=== PATIENT | male | born 1940 | race Caucasian/White ===

== ENCOUNTER 2017-08-16 16:46 | Emergency (ER) | payer MEDICARE ==
[~2017-08-16] VITALS: Ht 174 cm; Wt 98.1 kg
[~2017-08-16 16:46] MED LIST: ALLO100 PO; LOSA25TA31 PO; OYST500T77 PO; TAB-TAB PO
[2017-08-16 16:53] VITALS: BP 130/59; PULSE 85; RESP 16; TEMP 100.6; O2SAT 94
[2017-08-16] MEDS ORDERED: ALLO100T PO (17:09)
[2017-08-16] MEDS ORDERED: METO25TA3 PO (17:09)
[2017-08-16] MEDS ORDERED: LIPI10TA PO (17:09)
[2017-08-16] MEDS ORDERED: PLAV75TA29 PO (17:09)
[2017-08-16] MEDS ORDERED: SODIUM CHLOR 0.9% 1000 ML INJ 1,000 ML IV ONE (17:30)
[2017-08-16] MEDS ORDERED: VANCOMYCIN INJ 1,000 MG in SODIUM CHLOR 0.9% 250 ML INJ 250 ML IV ONE (17:30)
[2017-08-16] MEDS ORDERED: TETANUS/DIPHTHERIA TOXOID ADULT 0.5 ML VIAL IM ONE (17:30)
--- NOTE | 2017-08-16 17:31 | PD ---
HPI Chief Complaint: Fever Time Seen by Provider: 17:13 Travel History International Travel<30 days: No Contact w/Intl Traveler<30days: No Traveled to known affect area: No History of Present Illness HPI 77-year-old male complains of fever chills body ache. Patient states that he was doing gardening yesterday and got puncture wound to the fingers from cactus. Patient states that he started having fever chills up to 102 since yesterday. Patient states that he has shaking chills intermittent yesterday and today. Patient denies any headache. Patient denies any neck pain. Patient denies any coughing congestion. Patient denies any chest pain or shortness of breath. Patient denies abdominal pain. Patient denies any nausea vomiting diarrhea. Patient denies any dysuria frequency. Patient denies any back pain. Patient is not up-to-date with TD booster. PFSH Past Medical History Hx Anticoagulant Therapy: Yes (plavix) Heart Rhythm Problems: No Cardiovascular Problems: Yes (htn on meds, [place] 2002) High Cholesterol: Yes Chest Pain: Yes Diminished Hearing: No Hypertension: Yes Myocardial Infarction: Yes Sleep Apnea: Yes (BEFORE GASTRIC BYPASS) Tetanus Vaccination: < 5 Years Influenza Vaccination: Yes Past Surgical History Abdominal Surgery: Yes (GASTRIC BYPASS AUGUST 2007, GALLBLADDER REMOVED, hernia ) Cholecystectomy: Yes Social History Alcohol Use: No Tobacco Use: No Substance Use: No Allergies-Medications (Allergen,Severity, Reaction): Coded Allergies: No Known Allergies (Verified Allergy, Mild, 08/16/17) Reported Meds & Prescriptions Reported Meds & Active Scripts Active Clindamycin (Clindamycin HCl) 150 Mg Cap 300 Mg PO QID Doxycycline Hyclate 100 Mg Cap 100 Mg PO BID Reported Metoprolol Tartrate 25 Mg Tab 25 Mg PO DAILY Allopurinol 100 Mg Tab 100 Mg PO DAILY Lipitor (Atorvastatin Calcium) 10 Mg Tab 10 Mg PO HS Plavix (Clopidogrel Bisulfate) 75 Mg Tab 75 Mg PO DAILY Review of Systems General / Constitutional: Positive: Fever, Chills Eyes: No: Visual changes HENT: No: Headaches Cardiovascular: No: Chest Pain or Discomfort Respiratory: No: Shortness of Breath Gastrointestinal: No: Abdominal Pain Genitourinary: No: Dysuria Musculoskeletal: No: Pain Skin: No Rash Neurologic: No: Weakness Psychiatric: No: Depression Endocrine: No: Polydipsia Hematologic/Lymphatic: No: Easy Bruising Physical Exam Narrative GENERAL: Well-nourished, well-developed patient. SKIN: Focused skin assessment warm/dry. HEAD: Normocephalic. EYES: No scleral icterus. No injection or drainage. NECK: Supple, trachea midline. No JVD or lymphadenopathy. CARDIOVASCULAR: Regular rate and rhythm without murmurs, gallops, or rubs. RESPIRATORY: Breath sounds equal bilaterally. No accessory muscle use. GASTROINTESTINAL: Abdomen soft, non-tender, nondistended. MUSCULOSKELETAL: Patient has redness swelling with mild tenderness distal phalange right third finger with redness streaking extended from the dorsal aspect of the right hand to the right wrist. BACK: Nontender without obvious deformity. No CVA tenderness. Neurologic exam normal. Data Data Last Documented VS Vital Signs Date Time Temp Pulse Resp B/P (MAP) Pulse Ox O2 Delivery O2 Flow Rate FiO2 08/16/17 18:05 96 Room Air 08/16/17 18:05 103.2 08/16/17 16:53 85 16 130/59 (82) Orders Orders Complete Blood Count With Diff (08/16/17 17:23) Comprehensive Metabolic Panel (08/16/17 17:23) Blood Culture (08/16/17 17:23) Urinalysis - C+S If Indicated (08/16/17:23) Influenzae A/B Antigen (08/16/17 17:23) Chest, Single Ap (08/16/17 17:23) Iv Access Insert/Monitor (08/16/17 17:23) Ecg Monitoring (08/16/17:23) Oximetry (08/16/17:23) Lactic Acid (08/16/17 17:23) Sodium Chlor 0.9% 1000 Ml Inj (Ns 1000 M (08/16/17 17:30) Tetanus/Diphtheria Tox Adult (Tetanus/Di (08/16/17 17:30) Vancomycin Inj (Vancomycin Inj) (08/16/17 17:30) Prothrombin Time / Inr (Pt) (08/16/17 17:26) Act Partial Throm Time (Ptt) (08/16/17 17:26) Acetaminophen (Tylenol) (08/16/17 18:15) Doxycycline (Vibramycin) (08/16/17 18:45) Ed Discharge Order (08/16/17 18:33) Labs Laboratory Tests Test 08/16/17 17:30 White Blood Count 8.7 TH/MM3 Red Blood Count 4.02 MIL/MM3 Hemoglobin 12.9 GM/DL Hematocrit 38.5 % Mean Corpuscular Volume 95.9 FL Mean Corpuscular Hemoglobin 32.1 PG Mean Corpuscular Hemoglobin Concent 33.5 % Red Cell Distribution Width 12.5 % Platelet Count 153 TH/MM3 Mean Platelet Volume 10.3 FL Neutrophils (%) (Auto) 89.6 % Lymphocytes (%) (Auto) 5.2 % Monocytes (%) (Auto) 2.2 % Eosinophils (%) (Auto) 0.1 % Basophils (%) (Auto) 2.9 % Neutrophils # (Auto) 7.7 TH/MM3 Lymphocytes # (Auto) 0.5 TH/MM3 Monocytes # (Auto) 0.2 TH/MM3 Eosinophils # (Auto) 0.0 TH/MM3 Basophils # (Auto) 0.3 TH/MM3 CBC Comment AUTO DIFF Differential Comment AUTO DIFF CONFIRMED Prothrombin Time 12.7 SEC Prothromb Time International Ratio 1.3 RATIO Activated Partial Thromboplast Time 27.3 SEC Blood Urea Nitrogen 25 MG/DL Creatinine 1.30 MG/DL Random Glucose 112 MG/DL Total Protein 7.5 GM/DL Albumin 3.6 GM/DL Calcium Level 8.8 MG/DL Alkaline Phosphatase 61 U/L Aspartate Amino Transf (AST/SGOT) 24 U/L Alanine Aminotransferase (ALT/SGPT) 29 U/L Total Bilirubin 1.4 MG/DL Sodium Level 135 MEQ/L Potassium Level 4.2 MEQ/L Chloride Level 100 MEQ/L Carbon Dioxide Level 28.4 MEQ/L Anion Gap 7 MEQ/L Estimat Glomerular Filtration Rate 54 ML/MIN Lactic Acid Level 1.2 mmol/L MDM Medical Decision Making Medical Screen Exam Complete: Yes Emergency Medical Condition: Yes Interpretation(s) 1823 PM. Last Impressions Chest X-Ray 08/16/17 1723 Signed Impressions: Service Date/Time: Wednesday, August 16, 2017 17:31 - CONCLUSION: Underated with minimal parenchymal changes left base. No failure Cayetano Oliveira MD FACR 1823 PM. CBC WBC 8.7. Hemoglobin 12.9 hematocrit 30.5. 89 neutrophil. Sodium 135. BUN 25. GFR 54. Creatinine 1.3. Lactic acid 1.2. INR 1.3. Influenza AB antigen negative. Differential Diagnosis Differential diagnosis including cellulitis, lymphangitis, sepsis. Unlikely sporotrichosis Narrative Course 77-year-old male with fever chills and redness of right third finger with extension the redness to the right hand and the right wrist. Status post cactus puncture wound while gardening yesterday. Td booster given. Normal saline solution 1 L IV bolus. Vancomycin 1 g IV given. Tylenol 650 mg p.o. given. Doxycycline 100 mg p.o. given. Examination unlikely sporotrichosis. Diagnosis Primary Impression: Cellulitis Qualified Codes: L03.011 - Cellulitis of right finger Additional Impression: Lymphangitis Patient Instructions: General Instructions Additional Instructions: Clindamycin and doxycycline as directed. Return in a.m. for recheck. Tylenol for fever. Med/Other Pt SpecificInfo: Prescription(s) given Scripts Clindamycin (Clindamycin) 150 Mg Cap 300 MG PO QID for Infection, #80 CAP 0 Refills Prov: Myles Austin MD 08/16/17 Doxycycline Hyclate (Doxycycline Hyclate) 100 Mg Cap 100 MG PO BID for Infection, #20 CAP 0 Refills Prov: Myles Austin MD 08/16/17 Disposition: 01 DISCHARGE HOME Condition: Stable Myles Austin MD August 16, 2017 17:31
[2017-08-16 17:49] LABS: AUTOMATED NEUTROPHIL # 7.7 TH/MM3 (1.8-7.7); BASOPHIL # 0.3 TH/MM3 (0-0.2); BASOPHIL % 2.9 % (0.0-2.0); EOSINOPHIL % 0.1 % (0.0-4.0); HEMATOCRIT 38.5 % (39.0-51.0); HEMOGLOBIN 12.9 GM/DL (13.0-17.0); LYMPH % 5.2 % (9.0-44.0); LYMPHOCYTE # 0.5 TH/MM3 (1.0-4.8); MEAN CELL VOLUME 95.9 FL (80.0-100.0); MEAN CORPUSCULAR HEMOGLOBIN 32.1 PG (27.0-34.0); MEAN CORPUSCULAR HGB CONC 33.5 % (32.0-36.0); MEAN PLATELET VOLUME 10.3 FL (7.0-11.0); MONO % 2.2 % (0.0-8.0); MONOCYTE # 0.2 TH/MM3 (0-0.9); NEUT % 89.6 % (16.0-70.0); PLATELET COUNT 153 TH/MM3 (150-450); RED BLOOD COUNT 4.02 MIL/MM3 (4.50-5.90); RED CELL DISTRIBUTION WIDTH 12.5 % (11.6-17.2); WHITE BLOOD COUNT 8.7 TH/MM3 (4.0-11.0)
--- NOTE | 2017-08-16 17:51 | RADRPT ---
EXAM DATE/TIME: 08/16/2017 17:31 [facility] COMPARISON: No previous studies available for comparison. INDICATIONS : Fever begining yesterday after puncture wound to finger from cactus. MEDICAL HISTORY : Hypertension. Myocardial infarction. SURGICAL HISTORY : None. ENCOUNTER: Initial ACUITY: 2 days PAIN SCORE: 0/10 LOCATION: Bilateral chest FINDINGS: The lungs are under aerated. Minimal parenchymal changes left base. Right lung clear. Mild promine nce to the cardiac silhouette. No failure CONCLUSION: Underated with minimal parenchymal changes left base. No failure Cayetano Oliveira MD FACR on August 16, 2017 at 17:47 Board Certified Radiologist. This report was verified electronically.
[2017-08-16 18:04] LABS: CHLORIDE 100 MEQ/L (98-107); SODIUM (NA) 135 MEQ/L (136-145)
[2017-08-16 18:05] VITALS: TEMP 103.2; O2SAT 96
[2017-08-16 18:07] LABS: ALBUMIN 3.6 GM/DL (3.4-5.0); BICARBONATE 28.4 MEQ/L (21.0-32.0); BLOOD UREA NITROGEN 25 MG/DL (7-18); CALCIUM 8.8 MG/DL (8.5-10.1); GLUCOSE,RANDOM 112 MG/DL (74-106)
[2017-08-16 18:09] LABS: INTERNATIONAL NORMALIZED RATIO 1.3 RATIO; PROTHROMBIN TIME - PATIENT 12.7 SEC (9.8-11.6)
[2017-08-16 18:10] LABS: ALT (GPT) 29 U/L (12-78); AST (GOT) 24 U/L (15-37); GLOMERULAR FILTRATION RATE 54 ML/MIN (>89)
[2017-08-16 18:12] LABS: TOTAL BILIRUBIN ADULT 1.4 MG/DL (0.2-1.0); TOTAL PROTEIN 7.5 GM/DL (6.4-8.2)
[2017-08-16 18:13] LABS: ALKALINE PHOSPHATASE 61 U/L (45-117)
[2017-08-16] MEDS ORDERED: ACETAMINOPHEN 325 MG TAB PO ONE (18:15)
[2017-08-16] MEDS ORDERED: CLIN150C14 PO (18:32)
[2017-08-16] MEDS ORDERED: DOXY100C PO (18:32)
[2017-08-16] MEDS ORDERED: DOXYCYCLINE HYCLATE 100 MG CAP PO ONE (18:45)
[2017-08-16 18:55] LABS: BILIRUBIN, URINE NEG (NEG); BLOOD, URINE TRACE (NEG); GLUCOSE,URINE NEG (NEG); KETONE, URINE NEG (NEG); NITRITE,URINE NEG (NEG); PH, URINE 5.5 (5.0-8.5); URINE COLOR YELLOW (YELLW/STRAW); URINE LEUKOCYTE ESTERASE NEG (NEG)
[2017-08-16 19:02] LABS: SQUAMOUS EPITHELIAL CELL URINE 0-5 /hpf (0-5)
[2017-08-16 19:19] VITALS: RESP 18
[2017-08-16 19:20] VITALS: BP 103/50; TEMP 101.4
[2017-08-17] MEDS ORDERED: SPIR25TA PO (07:08)
[2017-08-17] MEDS ORDERED: METO1TAB42 PO (07:08)
[2017-08-17] MEDS ORDERED: LOSA25TA PO (07:08)
== END 2017-08-16 19:27 | disposition home or self-care (01) ==
LOC: PHED 16:46
DX: L03.011 Cellulitis of right finger (principal); A49.8 Other bacterial infections of unspecified site; I89.1 Lymphangitis; I10 Essential (primary) hypertension; E78.00 Pure hypercholesterolemia, unspecified; I25.2 Old myocardial infarction; G47.30 Sleep apnea, unspecified; Z79.02 Long term (current) use of antithrombotics/antiplatelets; Z23 Encounter for immunization
CPT/HCPCS: 71045; 80053; 81001; 83605; 85025; 85610; 85730; 87040; 87077; 87186; 87205; 87804; 90471; 90714; 96365; 99284; J3370; J7030; J7050

== ENCOUNTER 2017-08-17 06:49 | Emergency (ER) | payer MEDICARE ==
[~2017-08-17] VITALS: Ht 175.3 cm; Wt 99.1 kg
[~2017-08-17 06:49] MED LIST changes: -ALLO100 PO; +ALLO100T PO; +CLIN150C14 PO; +DOXY100C PO; +LIPI10TA PO; -LOSA25TA31 PO; +METO25TA3 PO; -OYST500T77 PO; +PLAV75TA29 PO; -TAB-TAB PO
[2017-08-17 06:53] VITALS: BP 106/55; PULSE 66; RESP 18; TEMP 99.5; O2SAT 96
[2017-08-17] MEDS ORDERED: LOSA25TA PO (07:08)
[2017-08-17] MEDS ORDERED: SPIR25TA PO (07:08)
[2017-08-17] MEDS ORDERED: METO1TAB42 PO (07:08)
--- NOTE | 2017-08-17 07:12 | PD ---
HPI . Recheck Chief Complaint: Skin Problem Time Seen by Provider: 07:01 Travel History International Travel<30 days: No Contact w/Intl Traveler<30days: No Traveled to known affect area: No History of Present Illness HPI This patient presents for a scheduled recheck. He was seen yesterday for fever and cellulitis of his right middle finger which extended up into the hand and distal forearm. He was treated here yesterday with IV vancomycin and was discharged with prescriptions for doxycycline and clindamycin. He will start the doxycycline and clindamycin this morning. He states that his fever has come down. His hand seems to be a little bit better. PFSH Past Medical History Hx Anticoagulant Therapy: Yes (plavix) Heart Rhythm Problems: No Cardiovascular Problems: Yes ([place]) High Cholesterol: Yes Chest Pain: Yes Diminished Hearing: No Hypertension: Yes Myocardial Infarction: Yes Sleep Apnea: Yes (BEFORE GASTRIC BYPASS) Past Surgical History Abdominal Surgery: Yes (GASTRIC BYPASS AUGUST 2007, GALLBLADDER REMOVED, hernia ) Cholecystectomy: Yes Social History Alcohol Use: No Tobacco Use: No Substance Use: No Allergies-Medications (Allergen,Severity, Reaction): Coded Allergies: No Known Allergies (Verified Allergy, Mild, 08/17/17) Reported Meds & Prescriptions Reported Meds & Active Scripts Active Clindamycin (Clindamycin HCl) 150 Mg Cap 300 Mg PO QID Doxycycline Hyclate 100 Mg Cap 100 Mg PO BID Reported Metoprolol Succinate ER 24 HR (Metoprolol Succinate) 25 Mg Tab 25 Mg PO DAILY Metoprolol Tartrate 25 Mg Tab 25 Mg PO DAILY Allopurinol 100 Mg Tab 300 Mg PO DAILY Lipitor (Atorvastatin Calcium) 10 Mg Tab 40 Mg PO HS Plavix (Clopidogrel Bisulfate) 75 Mg Tab 75 Mg PO DAILY Review of Systems Except as stated in HPI: all other systems reviewed are Neg Physical Exam Narrative GENERAL: Awake and alert and in no acute distress. SKIN: Warm and dry. He has some erythema on the dorsal aspect of the right hand extending to proximal to the wrist. However, it is not hot to the touch. The tip of the right little finger is red, hot, swollen and tender. HEAD: Normocephalic/atraumatic. EYES: Pupils are equal. Extraocular movements are intact. NECK: Normal range of motion. CARDIOVASCULAR: Regular rate and rhythm. RESPIRATORY: Nonlabored respirations. MUSCULOSKELETAL: Atraumatic. NEUROLOGICAL: Nonfocal. PSYCHIATRIC: Appropriate mood and affect. Data Data Last Documented VS Vital Signs Date Time Temp Pulse Resp B/P (MAP) Pulse Ox O2 Delivery O2 Flow Rate FiO2 08/17/17 06:53 99.5 66 18 106/55 (72) 96 Orders Orders Ed Discharge Order (08/17/17 07:08) MDM Medical Decision Making Medical Screen Exam Complete: Yes Emergency Medical Condition: Yes Differential Diagnosis My differential diagnosis includes but is not limited to localized wound infection, cellulitis, abscess Narrative Course This patient presents for recheck of cellulitis of the right hand. His fever has broken. The redness on the dorsal hand and wrist is improved. His symptoms seem to be getting better with the current treatment. He will be discharged home with instructions to take the antibiotics as directed. Return here as needed. Diagnosis Primary Impression: Cellulitis Qualified Codes: L03.011 - Cellulitis of right finger Additional Impression: Lymphangitis Patient Instructions: General Instructions Departure Forms: Tests/Procedures Additional Instructions: Antibiotics as prescribed Disposition: 01 DISCHARGE HOME Condition: Stable Xochitl Coleman MD August 17, 2017 07:12
== END 2017-08-17 07:22 | disposition home or self-care (01) ==
LOC: PHED 06:49
DX: L03.011 Cellulitis of right finger (principal); I89.1 Lymphangitis; E78.00 Pure hypercholesterolemia, unspecified; I10 Essential (primary) hypertension; I25.2 Old myocardial infarction; Z98.84 Bariatric surgery status
CPT/HCPCS: 99282